=== PATIENT | female | born 2000 | race Caucasian/White ===

== ENCOUNTER 2020-10-11 00:19 | Emergency (ER) | payer SELFPAY ==
[2020-10-11] MEDS ORDERED: Ondansetron ODT 8 MG TAB ONE (00:43)
== END 2020-10-11 01:22 | disposition home or self-care (01) ==
LOC: ERS 00:19
DX: F10.129 Alcohol abuse with intoxication, unspecified (principal)
CPT/HCPCS: 99284; Q0162